=== PATIENT | female | born 1945 | race Caucasian/White ===

== ENCOUNTER 2016-07-18 14:31 | Observation (INO) | payer OTHER ==
[~2016-07-18] VITALS: Ht 172.7 cm; Wt 75.8 kg
[~2016-07-18 14:31] MED LIST: CEPH500T PO; DICY10 PO; DYAZ PO; LAMO200T PO; MAGN400T PO; NEPHRO PO; OXYC10TA8 PO; PRIS50TA PO; PROP120C PO; TEMA30CA PO; ZEGE20CA PO
[2016-07-18 15:09] VITALS: BP 144/86; PULSE 97; RESP 18; TEMP 98.3; O2SAT 100
[2016-07-18] MEDS ORDERED: ROCE1INJ3 IM (15:19)
[2016-07-18] MEDS ORDERED: LAMO25 PO (15:19)
[2016-07-18] MEDS ORDERED: TRIAPOW43 (15:19)
[2016-07-18] MEDS ORDERED: TEMA15CA PO (15:19)
[2016-07-18] MEDS ORDERED: PRIS50TA PO (15:19)
[2016-07-18] MEDS ORDERED: CEPH-460 PO (15:19)
[2016-07-18] MEDS ORDERED: DYAZ37.5 PO (15:20)
[2016-07-18] MEDS ORDERED: SODIUM CHLOR 0.9% 1000 ML INJ 1,000 ML IV ONE ×2 (15:45→18:15)
[2016-07-18] MEDS ORDERED: SODIUM CHLORIDE 0.9% FLUSH 5 ML FLUSH IVF PRN (15:45)
--- NOTE | 2016-07-18 15:48 | PD ---
HPI . Weakness Chief Complaint: Cold / Flu Symptoms Time Seen by Provider: 15:24 Travel History International Travel<30 days: No Contact w/Intl Traveler<30days: No Traveled to known affect area: No History of Present Illness HPI The patient presents from her doctor's office for evaluation of dehydration. Patient has had an upper respiratory infection. She is currently on Augmentin for same. She has developed diarrhea within the last 24 hours. She is now feeling weak and dizzy. She went to her doctor's office about it today and was hypotensive and was sent to us for hydration. Patient reports a several day long history of a chest cold a head cold. She states that he is choking on her sputum. She describes it as yellow and blood- tinged. She has not been running a fever. PFSH Past Medical History Hx Anticoagulant Therapy: No Arthritis: No Asthma: No Blood Disorders: No Bipolar Disorder: Yes (MOOD DISORDER) Anxiety: Yes Depression: Yes Cancer: Yes (right breast 1997, CERVIX) Cardiovascular Problems: Yes (HTN) High Cholesterol: Yes Chest Pain: Yes Congestive Heart Failure: No COPD: No Cerebrovascular Accident: No Diabetes: No Diminished Hearing: No Endocrine: No Gastrointestinal Disorders: Yes (IBS) GERD: Yes Glaucoma: No Headaches: Yes Hepatitis: No Hiatal Hernia: No Hypertension: Yes Kidney Stones: No Neurologic: Yes Immunizations Current: Yes Migraines: Yes Myocardial Infarction: No Radiation Therapy: Yes ( 1997) Renal Failure: No PNEUMOCCOCAL Vaccine (Year): 1 ?: Not Menopausal: Yes Tubal Ligation: Yes Past Surgical History AICD: No Cardiac Surgery: No Cholecystectomy: Yes (1999) Ear Surgery: No Endocrine Surgery: Yes (3 lumpectomy 1997, lymphoidectomy R side 1997) Eye Surgery: No Genitourinary Surgery: Yes (HEMORROIDECTOMY) Gynecologic Surgery: Yes (hysterectomy 1975; LUMPECTOMY AND LYMPHOIDECTOMY AT R BREAST, 1997) Hysterectomy: Yes (1974) Insulin Pump: No Joint Replacement: No Neurologic Surgery: No Oral Surgery: Yes (sinus surgery) Pacemaker: No Thoracic Surgery: No Other Surgery: Yes (// RHINOPLASTY 1982.) Social History Alcohol Use: No Tobacco Use: No Substance Use: No Allergies-Medications (Allergen,Severity, Reaction): Coded Allergies: Benadryl (Verified Allergy, Severe, REDNESS,SWELLING, THROAT SWELLING, 07/18) Clindamycin (Verified Allergy, Severe, HIVES/ITCHING, 07/18/16) PT DENIES ALLERGY TO THIS MED Depakote (Verified Allergy, Severe, HAD A SEIZURE, 07/18/16) PT DENIES ALLERGY TO THIS MED Dihydroergotamine (Verified Allergy, Severe, TACHYCARDIA, HIVES/SWELLING, 07/18/16) Diphenhydramine (Verified Allergy, Severe, ITCHING/REDNESS/SWELLING, ) Doxycycline (Verified Allergy, Severe, 07/18/16) PT DENIES ALLERGY TO THIS MED Imitrex (Verified Allergy, Severe, TACHYCARDIA, SWELLING, 07/18/16) Levofloxacin (Verified Allergy, Severe, REDNESS AND ITCHING AT IV SITE, 07/18/16) Lidocaine (Verified Allergy, Severe, ORAL SWELLING, 07/18/16) Morphine (Verified Allergy, Severe, REDNESS/ITCHING, 07/18/16) Sulfa (Verified Allergy, Severe, HIVES/ITCHING, 07/18/16) PT LUIS ALLERGY TO THIS MED Vancomycin (Verified Allergy, Severe, PHLEBITIS, 07/18/16) PT DENIES ALLERGY TO THIS MED Uncoded Allergies: ANY MIGRAINE MEDICINES (Allergy, Severe, SWELLING / HEART PALPATATIONS, 04/20) DOXYMYCIN (Allergy, Severe, HIVES/ITCHING, 06/25/07) Reported Meds & Prescriptions Reported Meds & Active Scripts Active Reported Dyazide (Triamterene-Hydrochlorothiazide) 37.5-25 Mg Cap 1 Cap PO DAILY Rocephin Inj (Ceftriaxone Sodium) 1 Gm Inj 500 Mg IM ONCE Temazepam 15 Mg Cap 15 Mg PO HS PRN Keflex (Cephalexin) 500 Mg Cap 500 Mg PO Q12H Lamictal (Lamotrigine) 25 Mg Tab 25 Mg PO DAILY Pristiq 24 HR (Desvenlafaxine ER 24 HR) 50 Mg Tab 50 Mg PO DAILY Review of Systems Except as stated in HPI: all other systems reviewed are Neg General / Constitutional: No: Fever, Chills HENT: Positive: Headaches Respiratory: Positive: Cough Gastrointestinal: Positive: Diarrhea Genitourinary: Positive: Decreased Urinary Output Neurologic: Positive: Weakness, Dizziness Physical Exam Narrative GENERAL: The patient is awake and alert and does not appear to be in any distress SKIN: Warm and dry. HEAD: Atraumatic. Normocephalic. EYES: Pupils equal and round. ENT: No nasal bleeding or discharge. Mucous membranes are little dry. NECK: Trachea midline. Neck is supple with no cervical lymphadenopathy. CARDIOVASCULAR: Regular rate and rhythm. Heart sounds are normal. RESPIRATORY: No accessory muscle use. Lungs are clear with full air movement throughout GASTROINTESTINAL: Abdomen soft, non-tender, nondistended. MUSCULOSKELETAL: No obvious deformities. No edema. NEUROLOGICAL: Awake and alert. No obvious cranial nerve deficits. Motor grossly within normal limits. Normal speech. PSYCHIATRIC: Appropriate mood and affect; insight and judgment normal. Data Data Last Documented VS Vital Signs Date Time Temp Pulse Resp B/P Pulse Ox O2 Delivery O2 Flow Rate FiO2 07/18/16 17:05 92 18 124/78 99 Room Air 07/18/16 15:09 98.3 Orders Basic Metabolic Panel (Bmp) (07/18/16 15:39) Complete Blood Count With Diff (07/18/16 15:39) Lactic Acid Sepsis Protocol (07/18/16 15:39) Urinalysis - C+S If Indicated (07/18/16 15:39) Blood Culture (07/18/16 15:39) Sputum Culture And Gram Stain (07/18/16 15:39) Chest, Single Ap (07/18/16 15:39) Iv Access Insert/Monitor (07/18/16 15:39) Sodium Chloride 0.9% Flush (Ns Flush) (07/18/16 15:45) Sodium Chlor 0.9% 1000 Ml Inj (Ns 1000 M (07/18/16 15:45) C Diff Toxin Pcr (07/18/16 18:11) Enteric Path (Stool) (07/18/16 18:11) Potassium Chloride (Kcl) (07/18/16 18:15) Sodium Chlor 0.9% 1000 Ml Inj (Ns 1000 M (07/18/16 18:15) Admit Order (Ed Use Only) (07/18/16 18:13) Labs Laboratory Tests Test 07/18/16 07/18/16 16:15 16:50 Urine Collection Type CLEAN CATCH Urine Color STRAW Urine Turbidity CLEAR Urine pH 7.0 Urine Specific [place] 1.005 Urine Protein NEG mg/dL Urine Glucose (UA) NEG mg/dL Urine Ketones NEG mg/dL Urine Occult Blood TRACE Urine Nitrite NEG Urine Bilirubin NEG Urine Leukocyte Esterase NEG Urine Squamous Epithelial 0-2 /hpf Cells Microscopic Urinalysis Comment CULT NOT INDICATED White Blood Count 2.8 TH/MM3 Red Blood Count 4.49 MIL/MM3 Hemoglobin 13.3 GM/DL Hematocrit 40.0 % Mean Corpuscular Volume 88.9 FL Mean Corpuscular Hemoglobin 29.6 PG Mean Corpuscular Hemoglobin 33.3 % Concent Red Cell Distribution Width 12.5 % Platelet Count 280 TH/MM3 Mean Platelet Volume 7.9 FL Neutrophils (%) (Auto) % Lymphocytes (%) (Auto) % Monocytes (%) (Auto) % Eosinophils (%) (Auto) % Basophils (%) (Auto) % Neutrophils # (Auto) TH/MM3 Lymphocytes # (Auto) TH/MM3 Monocytes # (Auto) TH/MM3 Eosinophils # (Auto) TH/MM3 Basophils # (Auto) TH/MM3 CBC Comment AUTO DIFF Differential Total Cells 100 Counted Neutrophils % (Manual) 39 % Band Neutrophils % 3 % Lymphocytes % 42 % Monocytes % 16 % Neutrophils # (Manual) 1.2 TH/MM3 Differential Comment FINAL DIFF MANUAL Platelet Estimate NORMAL Platelet Morphology Comment NORMAL Red Cell Morphology Comment NORMAL Sodium Level 125 MEQ/L Potassium Level 2.6 MEQ/L Chloride Level 85 MEQ/L Carbon Dioxide Level 30.7 MEQ/L Anion Gap 9 MEQ/L Blood Urea Nitrogen 14 MG/DL Creatinine 1.10 MG/DL Estimat Glomerular Filtration 49 ML/MIN Rate Random Glucose 91 MG/DL Lactic Acid Level 1.3 mmol/L Calcium Level 8.2 MG/DL [facility] Medical Decision Making Medical Screen Exam Complete: Yes Emergency Medical Condition: Yes Medical Record Reviewed: Yes Differential Diagnosis Differential diagnosis of diarrhea includes but is not limited to early enteritis, bacterial enteritis, antibiotic induced diarrhea, irritable bowel syndrome Differential diagnosis of cough includes but is not limited to viral respiratory illness, bronchitis, pneumonia, allergies, CHF, asthma/COPD. Narrative Course Patient presents for treatment of dehydration. I will also evaluate her for possible pneumonia. 4:40 PM Chest x-ray is negative to the radiologist's interpretation. Chest x-ray was independently viewed by me. 5:35 PM White count is 2.8. H&H is 13.3 and 40.0. Lactic acid is 1.3. UA shows no evidence of infection. Electrolytes are remarkable for a sodium of 125 and a potassium of 2.6. I will ask for her to be admitted to hour OBS for hydration. Physician Communication Physician Communication Dr. Phelan will admit to 23H OBS. Diagnosis Primary Impression: Hyponatremia Additional Impression: Hypokalemia Admitting Information Admitting Physician Requests: Admit Condition: Stable Susy Dudley MD Jul 18, 2016 15:48
--- NOTE | 2016-07-18 16:19 | RADHPO ---
EXAM DATE/TIME: 07/18/2016 15:44 [facility] COMPARISON: No previous studies available for comparison. INDICATIONS : Cough. MEDICAL HISTORY : Hypertension. Hypercholesterolemia. Carcinoma, breast. Cervical cancer, IBS, GERD SURGICAL HISTORY : Tubal ligation. Hysterectomy. Right breast lumpectomy, Lymphoidectomy, Hemorroidectomy, ORIF right t ibia/fibula ENCOUNTER: Initial ACUITY: 1 day PAIN SCORE: 0/10 LOCATION: Bilateral chest FINDINGS: A single view of the chest demonstrates the lungs to be symmetrically aerated without evidence of mas s, infiltrate or effusion. Minimal linear atelectasis or scarring at the bases. The cardiomediastina l contours are unremarkable. Osseous structures are intact. CONCLUSION: Linear atelectasis or scarring at the lung bases. No effusion. Multiple surgical clips right axillary region. Robles Henning MD on July 18, 2016 at 16:14 Board Certified Radiologist. This report was verified electronically.
[2016-07-18 16:41] LABS: BLOOD, URINE TRACE (NEG); GLUCOSE,URINE NEG (NEG); KETONE, URINE NEG (NEG); NITRITE,URINE NEG (NEG)
[2016-07-18 17:05] VITALS: BP 124/78; PULSE 92; RESP 18; O2SAT 99
[2016-07-18 17:14] LABS: MEAN CELL VOLUME 88.9 FL (80.0-100.0); MEAN CORPUSCULAR HEMOGLOBIN 29.6 PG (27.0-34.0); MEAN CORPUSCULAR HGB CONC 33.3 % (32.0-36.0); PLATELET COUNT 280 TH/MM3 (150-450); RED BLOOD COUNT 4.49 MIL/MM3 (4.00-5.30); RED CELL DISTRIBUTION WIDTH 12.5 % (11.6-17.2); WHITE BLOOD COUNT 2.8 TH/MM3 (4.0-11.0)
[2016-07-18 17:16] LABS: COMMENT (UR) CULT NOT INDICATED; CULTURE IF INDICATED CULT NOT INDICATED; METHOD OF COLLECTION CLEAN CATCH; SQUAMOUS EPITHELIAL CELL URINE 0-2 /hpf (0-5); URINE COLOR STRAW (YELLW/STRAW)
[2016-07-18 17:26] LABS: HEMO FLAGS AUTO DIFF
[2016-07-18 17:35] LABS: BICARBONATE 30.7 MEQ/L (21.0-32.0)
[2016-07-18 17:36] LABS: POTASSIUM 2.6 MEQ/L (3.5-5.1)
[2016-07-18 17:57] LABS: BANDS 3 % (0-6); NEUTROPHIL # MANUAL DIFF 1.2 TH/MM3 (1.8-7.7); POLYS (SEG NEUTROPHILS) 39 % (16-70); WBC DIFF SAMPLE 100
[2016-07-18 17:58] LABS: PLATELET ESTIMATE SMEAR NORMAL (NORMAL); PLATELET MORPHOLOGY NORMAL (NORMAL); SCAN/DIFF FINAL DIFF MANUAL
[2016-07-18 18:00] VITALS: BP 126/76; PULSE 88; RESP 16; O2SAT 96
[2016-07-18] MEDS ORDERED: POTASSIUM CHLORIDE 20 MEQ CONTROLLED RELEASE TAB PO ONE (18:15)
[2016-07-18 19:25] VITALS: BP 124/73; PULSE 64; RESP 16; O2SAT 100
[2016-07-18 19:53] VITALS: BP 124/73; PULSE 64; RESP 16; O2SAT 100
[2016-07-18 20:58] VITALS: BP 146/87; PULSE 87; RESP 18; TEMP 98; O2SAT 96
[2016-07-19] VITALS: BP 150/90; PULSE 54; RESP 18; TEMP 97; O2SAT 94
[2016-07-19] MEDS ORDERED: NALOXONE HCL 0.4 MG/ML AMP IV PRN
[2016-07-19] MEDS ORDERED: ACETAMINOPHEN 325 MG TAB PO PRN
[2016-07-19] MEDS ORDERED: SODIUM CHLORIDE 0.9% FLUSH 5 ML FLUSH FLUSH PRN
[2016-07-19] MEDS ORDERED: ONDANSETRON HCL 4 MG/2 ML VIAL IVP PRN
[2016-07-19] MEDS ORDERED: TEMAZEPAM 15 MG CAP PO PRN (00:15)
[2016-07-19] MEDS ORDERED: POTASSIUM CHLORIDE 20 MEQ CONTROLLED RELEASE TAB PO ONE (00:15)
[2016-07-19] MEDS: SODIUM CHLOR 0.9% 1000 ML INJ 1,000 ML IV SCH ×2 (00:43→09:59)
[2016-07-19 04:00] VITALS: BP 119/73; PULSE 66; RESP 16; TEMP 97.4; O2SAT 97
[2016-07-19 06:44] LABS: AUTOMATED NEUTROPHIL # 1.3 TH/MM3 (1.8-7.7); BASOPHIL % 0.9 % (0.0-2.0); EOSINOPHIL % 0.3 % (0.0-4.0); HEMATOCRIT 36.8 % (35.0-46.0); HEMO FLAGS DIFF FINAL; LYMPH % 40.3 % (9.0-44.0); LYMPHOCYTE # 1.4 TH/MM3 (1.0-4.8); MEAN CORPUSCULAR HGB CONC 33.4 % (32.0-36.0); MONO % 19.7 % (0.0-8.0); NEUT % 38.8 % (16.0-70.0); PLATELET COUNT 212 TH/MM3 (150-450); RED BLOOD COUNT 4.09 MIL/MM3 (4.00-5.30); RED CELL DISTRIBUTION WIDTH 12.5 % (11.6-17.2); WHITE BLOOD COUNT 3.4 TH/MM3 (4.0-11.0)
[2016-07-19 07:04] LABS: ALKALINE PHOSPHATASE 58 U/L (45-117); ALT (GPT) 19 U/L (10-53); ANION GAP 11 MEQ/L (5-15); AST (GOT) 23 U/L (15-37); BICARBONATE 23.2 MEQ/L (21.0-32.0); BLOOD UREA NITROGEN 10 MG/DL (7-18); CHLORIDE 102 MEQ/L (98-107); GLOMERULAR FILTRATION RATE 75 ML/MIN (>89); INDIRECT BILIRUBIN 0.1 MG/DL (0.0-0.8); POTASSIUM 3.6 MEQ/L (3.5-5.1); SODIUM (NA) 136 MEQ/L (136-145); TOTAL BILIRUBIN ADULT 0.2 MG/DL (0.2-1.0)
[2016-07-19] MEDS ORDERED: DIATRIZOATE MEGLUM/DIATRIZOATE SOD 9 ML CUP PO ONE (07:30)
[2016-07-19 08:00] VITALS: BP 129/82; PULSE 59; RESP 18; TEMP 96.9; O2SAT 95
[2016-07-19] MEDS ORDERED: DESVENLAFAXINE 50 MG PO SCH (09:00)
[2016-07-19] MEDS ORDERED: lamoTRIgine 25 MG TAB PO SCH (09:00)
[2016-07-19] MEDS ORDERED: SODIUM CHLORIDE 0.9% FLUSH 5 ML FLUSH FLUSH SCH (09:00)
--- NOTE | 2016-07-19 10:21 | HHI.HP ---
[facility] Kaylee Yoon MD Admission Diagnosis hyponatremia/hypokalemia Diagnoses: (1) Hyponatremia Diagnosis: Principal (2) Hypokalemia Diagnosis: Principal Chief Complaint: Sent by primary medical doctor for IV fluids Travel History International Travel<30 Days: No Contact w/Intl Traveler <30 Da: No Traveled to Known Affected Are: No History of Present Illness 70-year-old female with known history of hypertension, anemia, manic disorder who presented to hospital request of her primary medical doctor for IV fluids. Patient states that she has been suffering from a cough for over a week. She went to urgent care center which prescribed her Augmentin and steroid. She did not improve so she went to her primary medical doctor's office for the first time 3 days ago. At that time patient was given Rocephin in the office and was told to follow-up. The patient did not improve so she went back the next day for another shot of Rocephin. However because of her clinical symptoms at the doctor's office they thought she may be dehydrated so the primary doctor sent her to the hospital to get IV fluids. Upon workup in emergency department patient found to have hyponatremia, hypokalemia. Is recommended by ER physician that the patient be observed and have electrolyte replacement with IV fluids. The patient states that she still has a cough with yellow phlegm production. She denies any fever, chills, shortness of breath, dyspnea, abdominal pain, nausea, vomiting, diarrhea, hematochezia. At the time evaluating the patient she still is feeling much better. She is very eager to go home. Review of Systems Constitutional: DENIES: Diaphoretic episodes, Fatigue, Fever, Weight gain, Weight loss, Chills, Dizziness, Change in appetite, Night Sweats Eyes: DENIES: Blurred vision, Diplopia, Eye inflammation, Eye pain, Vision loss , Double Vision Ears, nose, mouth, throat: DENIES: Vertigo, Nasal discharge, Throat pain, Ear Pain, Running Nose, Sinus Pain Respiratory: COMPLAINS OF: Cough, Sputum production, DENIES: Apneas, Snoring, Wheezing, Hemoptysis, Shortness of breath Cardiovascular: DENIES: Chest pain, Palpitations, Syncope, Dyspnea on Exertion , Lower Extremity Edema, Orthopnea Neurologic: DENIES: Abnormal gait, Headache, Localized weakness, Paresthesias, Speech Problems, Tremor, Poor Balance Psychiatric: COMPLAINS OF: Mood changes, Homicidal Ideation, DENIES: Anxiety, Confusion, Depression Past Family Social History Past Medical History Hypertension Hyperlipidemia Manic disorder neck sign gastroesophageal reflux History of breast cancer Lymphedema in the right arm Past Surgical History Breast lump removal 3 Hysterectomy Cholecystectomy Right femur fracture repair Right tibia repair Rhinoplasty Hemorrhoidectomy Reported Medications Reported Meds & Active Scripts Active Reported Dyazide (Triamterene-Hydrochlorothiazide) 37.5-25 Mg Cap 1 Cap PO DAILY Rocephin Inj (Ceftriaxone Sodium) 1 Gm Inj 500 Mg IM ONCE Temazepam 15 Mg Cap 15 Mg PO HS PRN Keflex (Cephalexin) 500 Mg Cap 500 Mg PO Q12H Lamictal (Lamotrigine) 25 Mg Tab 25 Mg PO DAILY Pristiq 24 HR (Desvenlafaxine ER 24 HR) 50 Mg Tab 50 Mg PO DAILY Allergies: Coded Allergies: Benadryl (Verified Allergy, Severe, REDNESS,SWELLING, THROAT SWELLING, 07/18) Clindamycin (Verified Allergy, Severe, HIVES/ITCHING, 07/18/16) PT DENIES ALLERGY TO THIS MED Depakote (Verified Allergy, Severe, HAD A SEIZURE, 07/18/16) PT DENIES ALLERGY TO THIS MED Dihydroergotamine (Verified Allergy, Severe, TACHYCARDIA, HIVES/SWELLING, 07/18/16) Diphenhydramine (Verified Allergy, Severe, ITCHING/REDNESS/SWELLING, ) Doxycycline (Verified Allergy, Severe, 07/18/16) PT DENIES ALLERGY TO THIS MED Imitrex (Verified Allergy, Severe, TACHYCARDIA, SWELLING, 07/18/16) Levofloxacin (Verified Allergy, Severe, REDNESS AND ITCHING AT IV SITE, 07/18/16) Lidocaine (Verified Allergy, Severe, ORAL SWELLING, 07/18/16) Morphine (Verified Allergy, Severe, REDNESS/ITCHING, 07/18/16) Sulfa (Verified Allergy, Severe, HIVES/ITCHING, 07/18/16) PT LUIS ALLERGY TO THIS MED Vancomycin (Verified Allergy, Severe, PHLEBITIS, 07/18/16) PT DENIES ALLERGY TO THIS MED Uncoded Allergies: ANY MIGRAINE MEDICINES (Allergy, Severe, SWELLING / HEART PALPATATIONS, 04/20) DOXYMYCIN (Allergy, Severe, HIVES/ITCHING, 06/25/07) Family History Reviewed is significant for father age 59 from heart attack. Social History Patient denies any tobacco, alcohol or illicit drugs Physical Exam Vital Signs Vital Signs Date Time Temp Pulse Resp B/P Pulse Ox O2 Delivery O2 Flow Rate FiO2 07/19/16 08:00 96.9 59 18 129/82 95 07/19/16 04:00 97.4 66 16 119/73 97 07/19/16 00:00 97.0 54 18 150/90 94 07/18/16 20:58 98.0 87 18 146/87 96 07/18/16 19:25 64 16 124/73 100 Room Air 07/18/16 18:00 88 16 126/76 96 Room Air 07/18/16 17:05 92 18 124/78 99 Room Air 07/18/16 15:13 18 99 Room Air 07/18/16 15:09 98.3 97 18 144/86 100 Physical Exam GENERAL: Well-developed, well-nourished, in no acute distress. alert and orientated HEENT: Head is normocephalic without any lesions or masses noted. Facial features are symmetric. Eyes: Pupils equal round reactive to light. Extraocular muscles are intact. Conjunctivae were clear. Oropharyngeal: Pharynx without any erythema edema. Tongue is midline without deviation. Buccal mucosa is moist without any masses or lesions NECK: Supple without any masses. Trachea midline no deviation. No JVD, no bruits are appreciated CARDIAC: Regular rhythm, regular rate. S1/S2 are heard. No murmurs gallops or rubs. LUNGS: Clear to auscultation bilaterally. No wheeze, rhonchi or rales. No use of accessory muscles on inspiration or expiration. ABDOMEN: Soft, nontender. Nondistended. Bowel sounds heard in all 4 quadrants. No organomegaly or masses. Negative rebound, negative guarding EXTREMITIES: No edema, pulses are equal bilaterally. No cyanosis or clubbing NEUROLOGY: Mood and affect appear appropriate. Cranial nerves II through XII grossly intact. Muscle strength 5/5 in upper and lower extremities bilaterally. Deep tendon reflexes are 2+ in upper and lower extremities bilaterally. Laboratory Laboratory Tests Test 07/18/16 07/18/16 07/19/16 16:15 16:50 05:59 Urine Collection Type CLEAN CATCH Urine Color STRAW Urine Turbidity CLEAR Urine pH 7.0 Urine Specific [place] 1.005 Urine Protein NEG Urine Glucose (UA) NEG Urine Ketones NEG Urine Occult Blood TRACE Urine Nitrite NEG Urine Bilirubin NEG Urine Leukocyte Esterase NEG Urine Squamous Epithelial 0-2 Cells Microscopic Urinalysis Comment CULT NOT INDICATED White Blood Count 2.8 3.4 Red Blood Count 4.49 4.09 Hemoglobin 13.3 12.3 Hematocrit 40.0 36.8 Mean Corpuscular Volume 88.9 90.0 Mean Corpuscular Hemoglobin 29.6 30.0 Mean Corpuscular Hemoglobin 33.3 33.4 Concent Red Cell Distribution Width 12.5 12.5 Platelet Count 280 212 Mean Platelet Volume 7.9 8.0 Neutrophils (%) (Auto) 38.8 Lymphocytes (%) (Auto) 40.3 Monocytes (%) (Auto) 19.7 Eosinophils (%) (Auto) 0.3 Basophils (%) (Auto) 0.9 Neutrophils # (Auto) 1.3 Lymphocytes # (Auto) 1.4 Monocytes # (Auto) 0.7 Eosinophils # (Auto) 0.0 Basophils # (Auto) 0.0 CBC Comment AUTO DIFF DIFF FINAL Differential Total Cells 100 Counted Neutrophils % (Manual) 39 Band Neutrophils % 3 Lymphocytes % 42 Monocytes % 16 Neutrophils # (Manual) 1.2 Differential Comment FINAL DIFF MANUAL Platelet Estimate NORMAL Platelet Morphology Comment NORMAL Red Cell Morphology Comment NORMAL Sodium Level 125 136 Potassium Level 2.6 3.6 Chloride Level 85 102 Carbon Dioxide Level 30.7 23.2 Anion Gap 9 11 Blood Urea Nitrogen 14 10 Creatinine 1.10 0.77 Estimat Glomerular Filtration 49 75 Rate Random Glucose 91 86 Lactic Acid Level 1.3 Calcium Level 8.2 7.8 Total Bilirubin 0.2 Direct Bilirubin LESS THAN 0.1 Indirect Bilirubin 0.1 Aspartate Amino Transf 23 (AST/SGOT) Alanine Aminotransferase 19 (ALT/SGPT) Alkaline Phosphatase 58 Total Protein 6.3 Albumin 3.0 Date/Time Procedure Status Source Growth 07/18/16 16:55 Aerobic Blood Culture Received Blood Peripheral Pending 07/18/16 16:55 Anaerobic Blood Culture Received Blood Peripheral Pending Result Diagram: 07/19/16 0559 07/19/16 0559 Imaging Last Impressions Chest X-Ray 07/18/16 1539 Signed Impressions: Service Date/Time: Monday, July 18, 2016 15:44 - CONCLUSION: Linear atelectasis or scarring at the lung bases. No effusion. Multiple surgical clips right axillary region. Robles Henning MD Assessment and Plan Assessment and Plan Hyponatremia, hypokalemia, resolved Likely secondary to comminution dehydration and HCTZ Patient has received IV fluids with improvement Patient did have outpatient follow-up with her primary medical doctor Hypertension Discontinue HCTZ --Start Procardia Mood disorder Continue home medications DVT prevention Sequential compression devices Written by Morgan Balbuena PA-C, acting as scribe for Dr. Marks on 07/19/16 at 1125. The documentation accurately reflects the work and decisions performed face-to- face by Dr. Marks on 07/19/16 at 1125. Discharge disposition Discharge home in stable condition Activity: Ad sergio. Diet: Healthy heart diet Medications per medication reconciliation Follow-up primary medical doctor one week Morgan Balbuena Jul 19, 2016 10:21
--- NOTE | 2016-07-19 11:19 | RADHPO ---
EXAM DATE/TIME: 07/19/2016 10:50 [facility] COMPARISON: No previous studies available for comparison. INDICATIONS : Nausea, vomiting and diarrhea for two days. ORAL CONTRAST: Prescribed oral contrast ingested. RADIATION DOSE: 14.17 CTDIvol (mGy) MEDICAL HISTORY : Carcinoma, breast. Hypertension. SURGICAL HISTORY : Cholecystectomy. Hysterectomy. ENCOUNTER: Initial ACUITY: 2 days PAIN SCALE: 2/10 LOCATION: Bilateral lower quadrant TECHNIQUE: Volumetric scanning of the abdomen and pelvis was performed. Using automated exposure control and adjustment of the mA and/or kV according to patient size, radiation dose was kept as low as reasonably achievable to obtain optimal diagnostic quality images. FINDINGS: The lung bases are clear. The liver is free of focal defects. Surgical clips are seen in the gallbl adder fossa. Pancreas and spleen are unremarkable. Again seen is the low-density lesion in the right kidney now measuring 4.1 cm. This is probably a cy st but I cannot confirm this on today's examination. The left kidney is unremarkable. There are no calcifications along the expected course of either the left ureter or the right ureter. Region of the cecum and terminal ileum are unremarkable. Pelvic contents appear normal. CONCLUSION: 1. Negative CT scan abdomen and pelvis for an acute process. I don't see evidence for a colitis. 2. Probable enlarging right renal cyst although inconclusive on today's examination. Dmitriy Encarnacion MD FACR on July 19, 2016 at 11:03 Board Certified Radiologist. This report was verified electronically.
[2016-07-19] MEDS ORDERED: NIFE1TAB85 PO (11:34)
--- NOTE | 2016-07-19 11:35 | HHI.DCPOC ---
Discharge Care Plan Diagnosis: (1) Hypokalemia (2) Hyponatremia Goals to Promote Your Health * To prevent worsening of your condition and complications * To maintain your health at the optimal level Directions to Meet Your Goals Take your medications as prescribed Follow your dietary instruction Follow activity as directed Keep your appointments as scheduled Take your immunizations and boosters as scheduled If your symptoms worsen call your PCP, if no PCP go to Urgent Care Center or Emergency Room Smoking is Dangerous to Your Health. Avoid second hand smoke Call the 24-hour hour crisis hotline for domestic abuse at Morgan Balbuena Jul 19, 2016 11:34
[2016-07-19 15:07] LABS: C. DIFF EPI 027 PRESUMPTIVE NEGATIVE (NEGATIVE); C. DIFF TOXIN PCR NEGATIVE (NEGATIVE)
== END 2016-07-19 12:57 | disposition home or self-care (01) ==
LOC: PHED 14:31 → PHEDA 18:14 → PH3A 20:30
PROVIDERS: ADMIT Family Medicine; ATTEND Family Medicine
DX: E86.0 Dehydration (principal); E87.1 Hypo-osmolality and hyponatremia; E87.6 Hypokalemia; J06.9 Acute upper respiratory infection, unspecified; J98.11 Atelectasis; I10 Essential (primary) hypertension; F30.9 Manic episode, unspecified; E78.5 Hyperlipidemia, unspecified; E78.00 Pure hypercholesterolemia, unspecified; K21.9 Gastro-esophageal reflux disease without esophagitis; K58.0 Irritable bowel syndrome with diarrhea; Z85.3 Personal history of malignant neoplasm of breast
CPT/HCPCS: 71010; 74176; 80048; 80076; 81001; 83605; 85007; 85025; 85027; 87040; 87493; 87506; 96360; 99285; G0378; J7030; Q9963